=== PATIENT | female | born 2000 | race Caucasian/White ===

== ENCOUNTER 2023-02-27 15:19 | Emergency (ER) | payer OTHER ==
[2023-02-27 16:09] VITALS: BP 123/76; PULSE 96; RESP 18; TEMP 98; BMI 19.1
== END 2023-02-27 16:42 | disposition home or self-care (01) ==
LOC: JERFT 15:19
DX: H00.021 Hordeolum internum right upper eyelid (principal); H02.841 Edema of right upper eyelid
CPT/HCPCS: 99283-25